=== PATIENT | male | born 1985 | race Two or more races ===

== ENCOUNTER 2021-06-17 17:59 | Inpatient (IN) | payer OTHER ==
[~2021-06-17] VITALS: Ht 177.8 cm; Wt 70.8 kg
== END 2021-06-25 11:14 | disposition home or self-care (01) | DRG 201 ==
LOC: ER 17:59 → SEC-K 23:53 → MEDI 06-18 09:00
PROVIDERS: ADMIT Surgery; ATTEND Surgery
PROC: 0W9B30Z Drainage of Left Pleural Cavity with Drainage Device, Percutaneous Approach (ICD-10-PCS; principal; 2021-06-17)
PROC: 3E0F7SF Introduction of Other Gas into Respiratory Tract, Via Natural or Artificial Opening (ICD-10-PCS; 2021-06-17)
PROC: BW25ZZZ Computerized Tomography (CT Scan) of Chest, Abdomen and Pelvis (ICD-10-PCS; 2021-06-17)
PROC: 4A033R1 Measurement of Arterial Saturation, Peripheral, Percutaneous Approach (ICD-10-PCS; 2021-06-17)
PROC: 0WPB30Z Removal of Drainage Device from Left Pleural Cavity, Percutaneous Approach (ICD-10-PCS; 2021-06-24)
DX: J93.83 Other pneumothorax (principal); F12.90 Cannabis use, unspecified, uncomplicated; Z20.822 Contact with and (suspected) exposure to COVID-19

== ENCOUNTER 2021-07-02 10:45 | Outpatient (CLI) | payer OTHER | END 2021-07-02 10:59 | disposition home or self-care (01) | LOC: RAD 10:45 | PROVIDERS: ATTEND Surgery | DX: I10 Essential (primary) hypertension (principal) ==